=== PATIENT | female | born 1975 | race Caucasian/White ===

== ENCOUNTER → 2021-08-28 | Outpatient (CLI) | payer OTHER | LOC: KOH-I 09:55 | DX: M79.672 Pain in left foot (principal); M79.671 Pain in right foot | CPT/HCPCS: 73630 ==

== ENCOUNTER → 2021-09-07 | Outpatient (CLI) | payer OTHER | LOC: KOH-I 14:19 | DX: D36.13 Benign neoplasm of peripheral nerves and autonomic nervous system of lower limb, including hip (principal); M79.672 Pain in left foot; M19.072 Primary osteoarthritis, left ankle and foot | CPT/HCPCS: 73718 ==

== ENCOUNTER → 2021-09-18 | Outpatient (CLI) | payer OTHER ==
[~2021-09-18] MED LIST: ALLOPURINOL100 MG PO; ARTHRITIS PAIN50 GM TP; ATORVASTATIN CA80 MG PO; BANOPHEN25 MG PO; C-10001000 MG PO; CEPHALEXIN500 MG PO; CLEARLAX119 GM PO; FLONASE ALLER15.8 ML; FUROSEMIDE20 MG PO; GABAPENTIN800 MG PO; IBU400 MG PO; K-TAB ER10 MEQ PO; LISINOPRIL20 MG PO; OMEPRAZOLE40 MG PO; ONDANSETRON ODT8 MG PO; ROBAXIN 750 MG750 MG GT; SINGULAIR10 MG PO; SUMATRIPTAN SUC25 MG PO; TOPROL XL25 MG PO; TORADOL 10 MG T10 MG PO; VITAMIN E180 M1 PO; [UNRECOGNIZED DRUG - CODE]
== END ==
LOC: LBRF 12:20
DX: Z20.822 Contact with and (suspected) exposure to COVID-19 (principal)
CPT/HCPCS: U0003

== ENCOUNTER → 2021-09-18 | Outpatient (CLI) | payer OTHER ==
[2021-09-18 11:47] LABS: HEMOGLOBIN 12.8 gm/dl (12.3-15.3); RED BLOOD COUNT 4.44 M/UL (4.00-5.10); WHITE BLOOD COUNT 10.8 K/UL (4.5-11.0)
[2021-09-18 11:56] LABS: BUN/CREATININE RATIO 14 (0-10)
== END ==
LOC: OPSV2 09-15 09:00
PROVIDERS: Podiatrist Foot & Ankle Surgery
DX: Z01.818 Encounter for other preprocedural examination (principal); M19.072 Primary osteoarthritis, left ankle and foot; R10.2 Pelvic and perineal pain; R00.1 Bradycardia, unspecified
CPT/HCPCS: 36415; 80048; 85027; 93005

== ENCOUNTER → 2021-09-20 | Day surgery (SDC) | payer OTHER ==
[~2021-09-20] VITALS: Ht 167.6 cm; Wt 108.9 kg
== END | disposition home or self-care (01) ==
LOC: OR 05:33
DX: M89.9 Disorder of bone, unspecified (principal); G58.8 Other specified mononeuropathies; M19.072 Primary osteoarthritis, left ankle and foot; G89.29 Other chronic pain; I10 Essential (primary) hypertension; E78.5 Hyperlipidemia, unspecified; K21.9 Gastro-esophageal reflux disease without esophagitis; Z88.2 Allergy status to sulfonamides; Z88.5 Allergy status to narcotic agent; Z79.899 Other long term (current) drug therapy; Z20.822 Contact with and (suspected) exposure to COVID-19
CPT/HCPCS: 73630; J0690; J1100; J1170; J1885; J2001; J2370; J2405; J2704; J2795; J3010; J3370; J7120